=== PATIENT | male | born 2000 | race Two or more races ===

== ENCOUNTER 2022-05-04 12:18 | Emergency (ER) | payer SELFPAY ==
[~2022-05-04] VITALS: Ht 165.1 cm; Wt 72.6 kg
[2022-05-04 12:51] VITALS: BP 129/68
--- NOTE | 2022-05-04 14:05 | NUR ---
CALLED TO ROOM-IN,NO ANSWER
--- NOTE | 2022-05-04 14:35 | NUR ---
CALLED TO ROOM-IN NO ANSWER
--- NOTE | 2022-05-04 15:00 | NUR ---
CALLED,NO ANSWER
== END 2022-05-04 15:05 | disposition left against medical advice (07) ==
LOC: ER 12:23
DX: Z53.21 Procedure and treatment not carried out due to patient leaving prior to being seen by health care provider (principal)